=== PATIENT | male | born 1955 | race Caucasian/White ===

== ENCOUNTER → 2019-05-21 | Outpatient (REF) | payer MEDICARE | LOC: M SFHCPLAZ 18:16 | PROVIDERS: ATTEND Dermatology | DX: L57.0 Actinic keratosis (principal); L82.1 Other seborrheic keratosis | CPT/HCPCS: 11102; 11103; 88305; G0463 ==

== ENCOUNTER → 2020-05-18 | Outpatient (CLI) | payer MEDICARE ==
[2020-05-18 16:26] LABS: HEMOGLOBIN A1c 5.4 %
[2020-05-18 16:30] LABS: ALBUMIN 3.8 GM/DL (3.2-5.2); BILIRUBIN,TOTAL 1.2 MG/DL (0.2-1.0); CALCIUM LEVEL 8.9 MG/DL (8.8-10.2); CHOLESTEROL RISK RATIO 4.394 (<5); CREATININE FOR GFR 1.29 MG/DL (0.70-1.30); FREE T4 1.35 NG/DL (0.76-1.46); GLOMERULAR FILTRATION RATE 59.5 (>49); POTASSIUM SERUM 4.3 MEQ/L (3.5-5.1); THYROID STIMULATING HORMONE 2.28 uIU/ML (0.358-3.740); TOTAL PROTEIN 7.4 GM/DL (6.4-8.2)
[2020-05-18 16:31] LABS: TOTAL 25(OH) VITAMIN D 24.7 NG/ML (30.0-100.0)
== END ==
LOC: M LAB 14:56
PROVIDERS: ATTEND Physician Assistant
DX: Z00.00 Encounter for general adult medical examination without abnormal findings (principal); Z13.220 Encounter for screening for lipoid disorders; Z13.29 Encounter for screening for other suspected endocrine disorder; Z79.899 Other long term (current) drug therapy

== ENCOUNTER → 2021-04-18 | Outpatient (CLI) | payer MEDICARE | LOC: M WUC 15:16 | PROVIDERS: ATTEND Physician Assistant | DX: N40.0 Benign prostatic hyperplasia without lower urinary tract symptoms (principal); Z12.5 Encounter for screening for malignant neoplasm of prostate ==

== ENCOUNTER → 2021-05-23 | Outpatient (REF) | payer MEDICARE ==
[2021-05-23 15:45] LABS: APPEARANCE, URINE CLEAR (CLEAR); BACTERIA, URINE AUTO NEGATIVE (NEGATIVE); BILIRUBIN, URINE AUTO NEGATIVE (NEGATIVE); BLOOD, URINE BLOOD NEGATIVE (NEGATIVE); COLOR, URINE YELLOW (YELLOW); GLUCOSE, URINE (UA) AUTO NEGATIVE (NEGATIVE); KETONE, URINE AUTO NEGATIVE (NEGATIVE); LEUKOCYTE ESTERASE, URINE AUTO NEGATIVE (NEGATIVE); NITRITE, URINE AUTO NEGATIVE (NEGATIVE); PROTEIN, URINE AUTO NEGATIVE (NEGATIVE); RBC, URINE AUTO 0 /HPF (0-3); SQUAMOUS EPITHELIAL CELL UR AU 0 /HPF (0-6); UROBILINOGEN, URINE AUTO 0.2 mg/dL (0.0-2.0); WBC, URINE AUTO 2 /HPF (0-3)
== END ==
LOC: M LAB REF 15:25
PROVIDERS: ATTEND Physician Assistant
DX: N40.0 Benign prostatic hyperplasia without lower urinary tract symptoms (principal); R81 Glycosuria

== ENCOUNTER → 2022-01-24 | Outpatient (CLI) | payer MEDICARE ==
[2022-01-24 16:59] LABS: BASO % 0.3 % (0.0-1.0); EOS # 0.1 10^3/uL (0.0-0.5); EOS % 1.2 % (0.0-3.0); HEMATOCRIT 49.6 % (42.0-52.0); HEMOGLOBIN 16.6 g/dl (13.5-17.5); LYMPH # 0.9 10^3/uL (1.5-5.0); LYMPH % 15.8 % (24.0-44.0); MEAN CORPUSCULAR HEMOGLOBIN 31.7 pg (27.0-33.0); MEAN CORPUSCULAR HGB CONC 33.5 g/dl (32.0-36.5); MEAN CORPUSCULAR VOLUME 94.7 fl (80.0-96.0); MONO # 0.6 10^3/uL (0.0-0.8); MONO % 11.1 % (2.0-8.0); NEUTROPHILS # 4.1 10^3/uL (1.5-8.5); NEUTROPHILS % 71.4 % (36.0-66.0); PLATELET COUNT, AUTOMATED 155 10^3/uL (150-450); RED BLOOD COUNT 5.24 10^6/uL (4.30-6.10); WHITE BLOOD COUNT 5.8 10^3/uL (4.0-10.0)
[2022-01-24 17:11] LABS: ALBUMIN 4.1 GM/DL (3.2-5.2); BILIRUBIN,TOTAL 0.9 MG/DL (0.2-1.0); CALCIUM LEVEL 9.2 MG/DL (8.8-10.2); CHOLESTEROL RISK RATIO 3.975 (<5); CREATININE FOR GFR 1.36 MG/DL (0.70-1.30); FREE T4 1.29 NG/DL (0.76-1.46); GLOMERULAR FILTRATION RATE 55.6 (>49); POTASSIUM SERUM 4.8 MEQ/L (3.5-5.1); THYROID STIMULATING HORMONE 3.15 uIU/ML (0.358-3.740); TOTAL PROTEIN 7.1 GM/DL (6.4-8.2)
[2022-01-24 17:12] LABS: TOTAL 25(OH) VITAMIN D 33.4 NG/ML (30.0-100.0)
[2022-01-24 18:22] LABS: HEMOGLOBIN A1c 5.3 %
== END ==
LOC: M PLALAB 13:58
PROVIDERS: ATTEND Physician Assistant Medical
DX: E55.9 Vitamin D deficiency, unspecified (principal); F41.8 Other specified anxiety disorders; Z13.1 Encounter for screening for diabetes mellitus; Z12.5 Encounter for screening for malignant neoplasm of prostate; Z13.220 Encounter for screening for lipoid disorders; Z79.899 Other long term (current) drug therapy
CPT/HCPCS: 36415; 80053; 80061; 82306; 83036; 84439; 84443; 85025; G0103

== ENCOUNTER → 2022-02-21 | Outpatient (CLI) | payer MEDICARE ==
[2022-02-21 16:14] LABS: CALCIUM LEVEL 8.3 MG/DL (8.8-10.2); CREATININE FOR GFR 1.49 MG/DL (0.70-1.30); GLOMERULAR FILTRATION RATE 50.1 (>49); POTASSIUM SERUM 4.5 MEQ/L (3.5-5.1)
== END ==
LOC: M WUC 14:05
PROVIDERS: ATTEND Physician Assistant Medical
DX: F41.8 Other specified anxiety disorders (principal)

== ENCOUNTER → 2023-05-16 | Outpatient (REF) | payer MEDICARE | LOC: M LABWUC 16:17 | PROVIDERS: ATTEND Specialist | DX: N40.0 Benign prostatic hyperplasia without lower urinary tract symptoms (principal) ==

== ENCOUNTER → 2023-07-16 | Outpatient (CLI) | payer MEDICARE ==
[2023-07-16 17:13] LABS: BASO % 0.7 % (0.0-1.0); EOS # 0.1 10^3/uL (0.0-0.5); EOS % 1.7 % (0.0-3.0); HEMATOCRIT 44.8 % (42.0-52.0); HEMOGLOBIN 15.1 g/dl (13.5-17.5); LYMPH # 1.1 10^3/uL (1.5-5.0); LYMPH % 18.7 % (24.0-44.0); MEAN CORPUSCULAR HEMOGLOBIN 31.7 pg (27.0-33.0); MEAN CORPUSCULAR HGB CONC 33.7 g/dl (32.0-36.5); MEAN CORPUSCULAR VOLUME 93.9 fl (80.0-96.0); MONO # 0.7 10^3/uL (0.0-0.8); MONO % 11.4 % (2.0-8.0); NEUTROPHILS % 67.3 % (36.0-66.0); PLATELET COUNT, AUTOMATED 160 10^3/uL (150-450); RED BLOOD COUNT 4.77 10^6/uL (4.30-6.10)
[2023-07-16 17:44] LABS: ALBUMIN 3.8 G/DL (3.2-5.2); ALKALINE PHOSPHATASE 70 U/L (46-116); ALT/SGPT 25 U/L (7.0-40); AST/SGOT 12 U/L (<34); BILIRUBIN,TOTAL 0.9 MG/DL (0.3-1.2); BLOOD UREA NITROGEN 16 MG/DL (9-23); CALCIUM LEVEL 8.9 MG/DL (8.3-10.6); CARBON DIOXIDE LEVEL 27 MMOL/L (20-31); CHLORIDE LEVEL 106 MMOL/L (98-107); CHOLESTEROL LEVEL 149 MG/DL (<200); CHOLESTEROL RISK RATIO 3.84 (<5); CREATININE FOR GFR 1.24 MG/DL (0.70-1.30); GLOMERULAR FILTRATION RATE > 60.0 (>49); GLUCOSE, FASTING 86 MG/DL (74-106); HDL CHOLESTEROL 38.8 MG/DL (>40); LDL CHOLESTEROL 88.6 MG/DL (<100); NON-HDL-C 110.2 MG/DL; POTASSIUM SERUM 4.3 MMOL/L (3.5-5.1); SODIUM LEVEL 140 MMOL/L (136-145); TOTAL PROTEIN 6.7 G/DL (5.7-8.2); TRIGLYCERIDES LEVEL 108 MG/DL (<150)
== END ==
LOC: M WUC 14:53
PROVIDERS: ATTEND Physician Assistant
DX: Z00.00 Encounter for general adult medical examination without abnormal findings (principal); R10.13 Epigastric pain; Z13.220 Encounter for screening for lipoid disorders; Z12.5 Encounter for screening for malignant neoplasm of prostate; E78.00 Pure hypercholesterolemia, unspecified
CPT/HCPCS: 36415; 80053; 80061; 85025; G0103

== ENCOUNTER → 2024-01-12 | Outpatient (REF) | payer MEDICARE ==
[~2024-01-12] MED LIST: CITA20TA6 PO; DOXA4TAB94 PO; ERGO500029 PO
== END ==
LOC: M SFHCDERM 07:46
PROVIDERS: ATTEND Physician Assistant
DX: D18.01 Hemangioma of skin and subcutaneous tissue (principal)

== ENCOUNTER → 2024-06-08 | Outpatient (CLI) | payer MEDICARE | LOC: M WUC 10:30 | PROVIDERS: ATTEND Physician Assistant | DX: Z12.5 Encounter for screening for malignant neoplasm of prostate (principal); N40.1 Benign prostatic hyperplasia with lower urinary tract symptoms | CPT/HCPCS: 36415; G0103 ==

== ENCOUNTER → 2024-07-20 | Outpatient (CLI) | payer MEDICARE | LOC: M CARPUL 14:40 | PROVIDERS: ATTEND Physician Assistant | DX: I51.7 Cardiomegaly (principal); I50.30 Unspecified diastolic (congestive) heart failure; I35.0 Nonrheumatic aortic (valve) stenosis; I35.8 Other nonrheumatic aortic valve disorders; I35.1 Nonrheumatic aortic (valve) insufficiency; I36.1 Nonrheumatic tricuspid (valve) insufficiency; I77.810 Thoracic aortic ectasia ==

== ENCOUNTER → 2024-08-06 | Outpatient (CLI) | payer MEDICARE ==
[2024-08-06 17:28] LABS: BASO % 0.4 % (0.0-1.0); EOS # 0.1 10^3/uL (0.0-0.5); EOS % 1.5 % (0.0-3.0); HEMATOCRIT 45.5 % (42.0-52.0); HEMOGLOBIN 15.6 g/dl (13.5-17.5); LYMPH # 0.9 10^3/uL (1.5-5.0); LYMPH % 16.2 % (24.0-44.0); MEAN CORPUSCULAR HEMOGLOBIN 32.6 pg (27.0-33.0); MEAN CORPUSCULAR HGB CONC 34.3 g/dl (32.0-36.5); MEAN CORPUSCULAR VOLUME 95.2 fl (80.0-96.0); MONO # 0.6 10^3/uL (0.0-0.8); MONO % 10.4 % (2.0-8.0); NEUTROPHILS # 3.8 10^3/uL (1.5-8.5); NEUTROPHILS % 71.3 % (36.0-66.0); PLATELET COUNT, AUTOMATED 144 10^3/uL (150-450); RED BLOOD COUNT 4.78 10^6/uL (4.30-6.10); WHITE BLOOD COUNT 5.4 10^3/uL (4.0-10.0)
[2024-08-06 18:01] LABS: ALBUMIN 3.7 G/DL (3.2-5.2); ALKALINE PHOSPHATASE 69 U/L (46-116); ALT/SGPT 21 U/L (7.0-40); AST/SGOT 13 U/L (<34); BILIRUBIN,TOTAL 1.1 MG/DL (0.3-1.2); BLOOD UREA NITROGEN 19 MG/DL (9-23); CARBON DIOXIDE LEVEL 28 MMOL/L (20-31); CHLORIDE LEVEL 107 MMOL/L (98-107); CHOLESTEROL LEVEL 161 MG/DL (<200); CREATININE FOR GFR 1.25 MG/DL (0.70-1.30); GLOMERULAR FILTRATION RATE > 60.0 (>42); GLUCOSE, FASTING 81 MG/DL (74-106); POTASSIUM SERUM 4.5 MMOL/L (3.5-5.1); SODIUM LEVEL 138 MMOL/L (136-145); TOTAL PROTEIN 6.8 G/DL (5.7-8.2); TRIGLYCERIDES LEVEL 108 MG/DL (<150)
[2024-08-06 18:03] LABS: FREE T4 1.26 NG/DL (0.89-1.76); THYROID STIMULATING HORMONE 2.397 uIU/ML (0.55-4.78)
[2024-08-06 18:33] LABS: HEMOGLOBIN A1c 5.1 % (4.0-6.0)
[2024-08-06 23:37] LABS: CHOLESTEROL RISK RATIO 4.63 (<5); HDL CHOLESTEROL 34.7 MG/DL (>40); LDL CHOLESTEROL 104.7 MG/DL (<100); NON-HDL-C 126.3 MG/DL
== END ==
LOC: M WUC 14:55
PROVIDERS: ATTEND Physician Assistant
DX: Z00.00 Encounter for general adult medical examination without abnormal findings (principal); N40.1 Benign prostatic hyperplasia with lower urinary tract symptoms; F41.8 Other specified anxiety disorders; S39.012A Strain of muscle, fascia and tendon of lower back, initial encounter; Z86.010 Personal history of colon polyps; Y93.9 Activity, unspecified; Y92.9 Unspecified place or not applicable; Z79.899 Other long term (current) drug therapy

== ENCOUNTER → 2024-09-30 | Outpatient (REF) | payer MEDICARE ==
[2024-09-30 20:32] LABS: BASO % 0.2 % (0.0-1.0); EOS # 0.1 10^3/uL (0.0-0.5); EOS % 1.3 % (0.0-3.0); HEMATOCRIT 47.8 % (42.0-52.0); HEMOGLOBIN 16.2 g/dl (13.5-17.5); LYMPH # 1.1 10^3/uL (1.5-5.0); LYMPH % 18.2 % (24.0-44.0); MEAN CORPUSCULAR HEMOGLOBIN 32.7 pg (27.0-33.0); MEAN CORPUSCULAR HGB CONC 33.9 g/dl (32.0-36.5); MEAN CORPUSCULAR VOLUME 96.4 fl (80.0-96.0); MONO # 0.6 10^3/uL (0.0-0.8); MONO % 10.6 % (2.0-8.0); NEUTROPHILS # 4.1 10^3/uL (1.5-8.5); NEUTROPHILS % 69.5 % (36.0-66.0); PLATELET COUNT, AUTOMATED 143 10^3/uL (150-450); RED BLOOD COUNT 4.96 10^6/uL (4.30-6.10); WHITE BLOOD COUNT 5.9 10^3/uL (4.0-10.0)
== END ==
LOC: M LAB REF 20:19
PROVIDERS: ATTEND Physician Assistant
DX: D69.6 Thrombocytopenia, unspecified (principal)

== ENCOUNTER → 2025-06-24 | Outpatient (REF) | payer MEDICARE ==
[2025-06-24 18:10] LABS: BASO # 0.0 10^3/uL (0.0-0.2); BASO % 0.5 % (0.0-1.0); EOS # 0.1 10^3/uL (0.0-0.5); EOS % 1.4 % (0.0-3.0); LYMPH # 1.0 10^3/uL (1.5-5.0); LYMPH % 14.4 % (24.0-44.0); MONO # 0.7 10^3/uL (0.0-0.8); MONO % 10.0 % (2.0-8.0); NEUTROPHILS # 4.9 10^3/uL (1.5-8.5); NEUTROPHILS % 73.4 % (36.0-66.0); PLATELET COUNT, AUTOMATED 167 10^3/uL (150-450)
[2025-06-24 18:24] LABS: ALT/SGPT 20.0 U/L (7.0-40); AST/SGOT 18.0 U/L (<34); CALCIUM LEVEL 8.9 MG/DL (8.3-10.6); CARBON DIOXIDE LEVEL 29.0 MMOL/L (20-31); CHLORIDE LEVEL 105.0 MMOL/L (98-107); CREATININE FOR GFR 1.27 MG/DL (0.70-1.30); GLOMERULAR FILTRATION RATE 60.4 (>42); IRON (FE) 122.0 UG/DL (65-175); PERCENT SATURATION 41.9 % (19.7-50.0); POTASSIUM SERUM 4.4 MMOL/L (3.5-5.1); SODIUM LEVEL 143.0 MMOL/L (136-145)
[2025-06-24 18:26] LABS: VITAMIN B12 LEVEL 354.0 PG/ML (211-911)
== END ==
LOC: M LABWUC 17:15
PROVIDERS: ATTEND Physician Assistant
DX: D69.6 Thrombocytopenia, unspecified (principal)

== ENCOUNTER → 2025-08-03 | Outpatient (CLI) | payer MEDICARE | LOC: M WUC 14:49 | PROVIDERS: ATTEND Specialist | DX: Z12.5 Encounter for screening for malignant neoplasm of prostate (principal); Z79.899 Other long term (current) drug therapy ==

== ENCOUNTER → 2025-10-28 | Outpatient (CLI) | payer MEDICARE ==
[2025-11-02 07:33] LABS: D002-IGE D FARINAE MITE < 0.10 kU/L (<0.10); E001-IGE CAT EPITHELIUM/DANDER < 0.10 kU/L (<0.10); E005-IGE DOG DANDER/HAIR/EPITH < 0.10 kU/L (<0.10); G002-IGE BERMUDA GRASS < 0.10 kU/L (<0.10); G003-IGE ORCHARD GRASS < 0.10 kU/L (<0.10); G006-IGE TIMOTHY GRASS < 0.10 kU/L (<0.10); M001-IGE PENICILLIUM CHRYSOGEN < 0.10 kU/L (<0.10); M003-IGE D pteronyssinus < 0.10 kU/L (<0.10); STEMP BOTRYOSUM IGE < 0.10 kU/L (<0.10); T001-IGE MAPLE/BOX ELDER < 0.10 kU/L (<0.10); T003-IGE COMMON SILVER BIRCH < 0.10 kU/L (<0.10); T008-IGE ELM, AMERICAN WHITE < 0.10 kU/L (<0.10); T014-IGE COTTONWOOD < 0.10 kU/L (<0.10); T016-IGE PINE, WHITE < 0.10 kU/L (<0.10); W003-IGE RAGWEED, GIANT < 0.10 kU/L (<0.10); W006-IGE MUGWORT < 0.10 kU/L (<0.10); W009-IGE PLANTAIN,ENGLISH < 0.10 kU/L (<0.10); W010-IGE LAMB'S QUARTER < 0.10 kU/L (<0.10); W012-IGE GOLDENROD < 0.10 kU/L (<0.10); W013-IgE COCKLEBUR IGE < 0.10 kU/L (<0.10)
[2025-11-02 07:47] LABS: M007-IGE BOTRYTIS cinerea < 0.10 kU/L (<0.10)
== END ==
LOC: M WUC 15:25
PROVIDERS: ATTEND Allergy & Immunology Allergy
DX: J30.0 Vasomotor rhinitis (principal)